=== PATIENT | female | born 1985 | race Caucasian/White ===

== ENCOUNTER → 2016-08-16 | Emergency (ER) | payer MEDICAID | END | disposition left against medical advice (07) | LOC: ER 00:10 | DX: F41.9 Anxiety disorder, unspecified (principal); Z53.21 Procedure and treatment not carried out due to patient leaving prior to being seen by health care provider ==

== ENCOUNTER 2017-12-19 16:34 | Emergency (ER) | payer MEDICAID ==
[~2017-12-19] VITALS: Ht 149.9 cm; Wt 81.6 kg
[2017-12-19 16:42] VITALS: BP 146/74
[2017-12-19] MEDS ORDERED: ALBUTEROL SULF 2.5 MG/0.5ML(0.5%) NEB SOLN NEB ONE (19:30)
[2017-12-19] MEDS ORDERED: IPRATROPIUM BROM 0.5 MG/2.5ML INH SOL NEB ONE (19:30)
== END 2017-12-19 20:55 | disposition home or self-care (01) ==
LOC: ER 16:44
DX: J40 Bronchitis, not specified as acute or chronic (principal)
CPT/HCPCS: 94640; 99283; J7611; J7644

== ENCOUNTER 2017-12-29 16:25 | Emergency (ER) | payer MEDICAID ==
[~2017-12-29] VITALS: Ht 149.9 cm; Wt 81.6 kg
[2017-12-29 17:29] LABS: Urine Bacteria FEW /hpf (None Seen); Urine Blood Negative /uL (Negative); Urine Specific Gravity 1.022 (1.001-1.035); Urine WBC 1 /hpf (0 - 5)
[2017-12-29 18:29] LABS: Albumin 4.1 g/dL (3.4-5.0); Calcium 9.2 mg/dL (8.5-10.1); Potassium 4.2 mmol/L (3.5-5.1)
[2017-12-29 18:34] LABS: BUN/Creatinine Ratio 14.1; Bilirubin, Total 0.5 mg/dL (0.2-1.0); Total Protein 8.5 g/dL (6.4-8.2)
[2017-12-29 18:35] LABS: Basophils # (auto) 0.1 uL; Basophils % (auto) 0.9 % (0.0-2.0); Eosinophils # (auto) 0.2 uL; Eosinophils % (auto) 1.7 % (0.0-7.0); Hematocrit 47.2 % (36.0-46.0); Hemoglobin 15.6 g/dL (12.2-16.2); Lymphocytes # (auto) 2.2 uL; Lymphocytes % (auto) 17.2 % (10.0-50.0); Mean Corpuscular Hemoglobin 30.3 pg (28.0-32.0); Mean Corpuscular Hgb Conc. 33.1 g/dL (32.0-36.0); Mean Corpuscular Volume 91.6 fL (80.0-100.0); Monocytes # (auto) 0.9 uL; Monocytes % (auto) 7.1 % (0.0-12.0); Neutrophils # (auto) 9.2 uL; Neutrophils % (auto) 73.1 % (37.0-80.0); Nucleated Red Blood Cells % 0.1 %; Platelet Count (auto) 418 10^3/uL (140-450); Red Blood Cells 5.15 10^6/uL (4.0-5.20); Red Cell Distribution Width 13.2 % (11.8-14.3); White Blood Cell 12.6 10^3/uL (4.4-10.8)
[2017-12-29] MEDS ORDERED: PANTOPRAZOLE 40 MG/10 ML VIAL IV STA (19:33)
[2017-12-29] MEDS ORDERED: SODIUM CHLORIDE 0.9% 500 ML IVB ONE (19:33)
[2017-12-29] MEDS ORDERED: ONDANSETRON HCL 4 MG/2 ML VIAL IV ONE (19:45)
[2017-12-29 22:26] VITALS: BP 155/98
== END 2017-12-29 23:08 | disposition home or self-care (01) ==
LOC: ER 16:41
DX: K29.00 Acute gastritis without bleeding (principal)
CPT/HCPCS: 36415; 76705; 80053; 81001; 81025; 85025; 96361; 96374; 96375; 99285; C9113; J2405

== ENCOUNTER 2018-01-01 09:39 | Emergency (ER) | payer MEDICAID ==
[~2018-01-01] VITALS: Ht 149.9 cm; Wt 72.6 kg
[2018-01-01 09:44] VITALS: BP 120/85
[2018-01-01] MEDS ORDERED: KETOROLAC TROMETH 60MG/2ML VIAL IM ONE (10:45)
== END 2018-01-01 12:10 | disposition home or self-care (01) ==
LOC: ER 09:39
DX: M54.5 Low back pain (principal)
CPT/HCPCS: 96372; 99283; J1885

== ENCOUNTER 2018-03-18 12:20 | Emergency (ER) | payer MEDICAID ==
[~2018-03-18] VITALS: Ht 149.9 cm; Wt 72.6 kg
[2018-03-18] MEDS ORDERED: SODIUM CHLORIDE 0.9% 1,000 ML IV ONE (13:36)
[2018-03-18 15:55] LABS: Urine Bacteria FEW /hpf (None Seen); Urine Blood 1+ /uL (Negative); Urine Hyaline Cast MOD /lpf (0 - 2); Urine Mucus MODERATE (None Seen); Urine Specific Gravity 1.027 (1.001-1.035); Urine WBC 48 /hpf (0 - 5)
[2018-03-18 15:59] LABS: Alanine Aminotransferase 36 U/L (13-56); Albumin 4.2 g/dL (3.4-5.0); Anion Gap 6 (5-15); Aspartate Aminotransferase 19 U/L (15-37); Blood Alcohol < 3.0 mg/dL (0-5); Blood Urea Nitrogen 8 mg/dL (7-18); Calcium 9.4 mg/dL (8.5-10.1); Carbon Dioxide 26 mmol/L (21-32); Chloride 105 mmol/L (98-107); Glucose 88 mg/dL (74-106); Potassium 3.3 mmol/L (3.5-5.1); Sodium 137 mmol/L (136-145)
[2018-03-18 16:02] LABS: Alkaline Phosphatase 85 U/L (45-117); Bilirubin, Total 1.1 mg/dL (0.2-1.0); GFR African American 106 mL/min; GFR Non-African American 87 mL/min; Total Protein 8.1 g/dL (6.4-8.2)
[2018-03-18 16:12] LABS: Alcohol, Urine < 3.0 mg/dL (0-5); Amphetamine Screen, Urine POSITIVE (NEGATIVE); Barbiturate Scree,Urine NEGATIVE (NEGATIVE); Benzodiazephine Screen, Urine NEGATIVE (NEGATIVE); Cannabinoid Screen, Urine POSITIVE (NEGATIVE); Cocaine Screen, Urine NEGATIVE (NEGATIVE); Opiate Scree,Urine NEGATIVE (NEGATIVE); Phencyclidine Screen, Urine NEGATIVE (NEGATIVE)
[2018-03-18 16:23] LABS: Basophils # (auto) 0 uL; Basophils % (auto) 0.4 % (0.0-2.0); Eosinophils # (auto) 0 uL; Hematocrit 43.8 % (36.0-46.0); Hemoglobin 15.2 g/dL (12.2-16.2); Lymphocytes # (auto) 1.6 uL; Lymphocytes % (auto) 25.1 % (10.0-50.0); Mean Corpuscular Hemoglobin 30.5 pg (28.0-32.0); Mean Corpuscular Hgb Conc. 34.7 g/dL (32.0-36.0); Mean Corpuscular Volume 87.9 fL (80.0-100.0); Monocytes # (auto) 0.5 uL; Monocytes % (auto) 8.2 % (0.0-12.0); Neutrophils # (auto) 4.3 uL; Neutrophils % (auto) 66.3 % (37.0-80.0); Nucleated Red Blood Cells % 0.5 %; Platelet Count (auto) 306 10^3/uL (140-450); Red Blood Cells 4.99 10^6/uL (4.0-5.20); White Blood Cell 6.5 10^3/uL (4.4-10.8)
[2018-03-19 15:23] VITALS: BP 105/60
== END 2018-03-19 13:04 | disposition short-term general hospital (02) ==
LOC: ER 12:20 → EDBD 12:20 → ER 03-19 13:04
DX: R41.82 Altered mental status, unspecified (principal); R44.1 Visual hallucinations; R45.851 Suicidal ideations; N39.0 Urinary tract infection, site not specified; F12.10 Cannabis abuse, uncomplicated; F15.10 Other stimulant abuse, uncomplicated
CPT/HCPCS: 36415; 70450; 80053; 80307; 80320; 81001; 85025; 94761

== ENCOUNTER 2018-05-06 03:23 | Emergency (ER) | payer MEDICAID ==
[~2018-05-06] VITALS: Ht 149.9 cm; Wt 74.8 kg
[2018-05-06 03:33] VITALS: BP 142/96
== END 2018-05-06 05:31 | disposition left against medical advice (07) ==
LOC: ER 03:23
DX: M25.531 Pain in right wrist (principal); Z53.21 Procedure and treatment not carried out due to patient leaving prior to being seen by health care provider
CPT/HCPCS: 73110; 73130

== ENCOUNTER 2018-08-04 16:44 | Emergency (ER) | payer MEDICAID ==
[~2018-08-04] VITALS: Ht 149.9 cm; Wt 77.1 kg
[2018-08-04 20:41] VITALS: BP 112/43
== END 2018-08-04 21:03 | disposition home or self-care (01) ==
LOC: ER 16:46
DX: G89.29 Other chronic pain (principal); M25.562 Pain in left knee
CPT/HCPCS: 73562

== ENCOUNTER 2019-01-03 10:57 | Emergency (ER) | payer MEDICAID ==
[2019-01-03 11:15] VITALS: BP 134/84
== END 2019-01-03 12:42 | disposition home or self-care (01) ==
LOC: ER 10:57
DX: S83.92XA Sprain of unspecified site of left knee, initial encounter (principal); W01.0XXA Fall on same level from slipping, tripping and stumbling without subsequent striking against object, initial encounter; Y93.01 Activity, walking, marching and hiking; Y92.89 Other specified places as the place of occurrence of the external cause; Y99.8 Other external cause status
CPT/HCPCS: 73562

== ENCOUNTER 2019-02-10 11:36 | Emergency (ER) | payer MEDICAID ==
[~2019-02-10] VITALS: Ht 149.9 cm; Wt 75.3 kg
[2019-02-10 11:53] VITALS: BP 122/80
== END 2019-02-10 16:27 | disposition home or self-care (01) ==
LOC: ER 11:36
DX: M54.5 Low back pain (principal); R35.0 Frequency of micturition; R51 Headache; M79.18 Myalgia, other site
CPT/HCPCS: 81002; 81025

== ENCOUNTER 2020-01-06 11:09 | Emergency (ER) | payer MEDICAID ==
[~2020-01-06] VITALS: Ht 149.9 cm; Wt 68.0 kg
[2020-01-06 11:58] LABS: Basophils # (auto) 0.1 10 ^3/uL (0-0.2); Basophils % (auto) 1.1 % (0.0-2.0); Eosinophils # (auto) 0.1 10 ^3/uL (0-0.8); Eosinophils % (auto) 1.7 % (0.0-7.0); Hematocrit 44.9 % (36.0-46.0); Hemoglobin 15.4 g/dL (12.2-16.2); Lymphocytes # (auto) 1.7 10 ^3/uL (0.4-5.4); Lymphocytes % (auto) 26.6 % (10.0-50.0); Mean Corpuscular Hemoglobin 30.6 pg (28.0-32.0); Mean Corpuscular Hgb Conc. 34.2 g/dL (32.0-36.0); Mean Corpuscular Volume 89.4 fL (80.0-100.0); Monocytes # (auto) 0.5 10 ^3/uL (0-1.3); Monocytes % (auto) 8.1 % (0.0-12.0); Neutrophils % (auto) 62.5 % (37.0-80.0); Nucleated Red Blood Cells % 0.1 %; Platelet Count (auto) 320 10^3/uL (140-450); Red Blood Cells 5.02 10^6/uL (4.0-5.20); Red Cell Distribution Width 12.2 % (11.8-14.3); White Blood Cell 6.4 10^3/uL (4.4-10.8)
[2020-01-06 12:09] LABS: Urine Bacteria MANY /hpf (None Seen); Urine Blood Negative /uL (Negative); Urine Specific Gravity 1.007 (1.001-1.035); Urine WBC 11 /hpf (0 - 5)
[2020-01-06 12:13] LABS: Alcohol, Urine < 3.0 mg/dL (0-10); Amphetamine Screen, Urine NEGATIVE (NEGATIVE); Barbiturate Scree,Urine NEGATIVE (NEGATIVE); Benzodiazephine Screen, Urine NEGATIVE (NEGATIVE); Cannabinoid Screen, Urine NEGATIVE (NEGATIVE); Cocaine Screen, Urine NEGATIVE (NEGATIVE); Opiate Scree,Urine NEGATIVE (NEGATIVE); Phencyclidine Screen, Urine NEGATIVE (NEGATIVE)
[2020-01-06 12:27] LABS: Potassium 3.4 mmol/L (3.5-5.1)
[2020-01-06 12:34] LABS: Albumin 3.8 g/dL (3.4-5.0); BUN/Creatinine Ratio 8.4; Bilirubin, Total 0.8 mg/dL (0.2-1.0); Calcium 8.7 mg/dL (8.5-10.1); Total Protein 7.7 g/dL (6.4-8.2)
[2020-01-06 17:25] LABS: Acetaminophen < 2.0 ug/mL (10-30)
[2020-01-06] MEDS ORDERED: cefTRIAXone W LIDOCAINE 1 GM IM IM ONE (17:30)
[2020-01-06 18:09] LABS: Salicylate < 1.7 mg/dL (2.8-20.0)
[2020-01-06] MEDS ORDERED: cefTRIAXone SOD 1,000 MG VL ONE (22:57)
[2020-01-07 08:11] VITALS: BP 101/72
--- NOTE | 2020-01-08 10:45 | NUR ---
Provided patient with info regarding [facility] - advised she must be willing to participate in chores, must not have any felonies or warrants for her. Also provided [facility] information, as well as [facility] contact information for possible programs to assist her. Patient would not speak with me, unable to assess her congnition or if there are any further needs. Inquired about social support or family assistance, she only said Tadeo's mom.. when I inquired who that was she would not answer.
== END 2020-01-06 17:23 | disposition home or self-care (01) ==
LOC: ER 11:09
DX: R45.851 Suicidal ideations (principal); N39.0 Urinary tract infection, site not specified; F32.9 Major depressive disorder, single episode, unspecified; F41.9 Anxiety disorder, unspecified; Z32.02 Encounter for pregnancy test, result negative
CPT/HCPCS: 36415; 80053; 80307; 80329; 81001; 81025; 85025; 96372; 99285; J0696

== ENCOUNTER 2020-05-14 17:09 | Emergency (ER) | payer MEDICAID ==
[~2020-05-14] VITALS: Ht 149.9 cm; Wt 49.9 kg
[2020-05-14 18:12] VITALS: BP 124/75
== END 2020-05-14 19:30 | disposition left against medical advice (07) ==
LOC: EDUNIT# 17:09 → EDBD 17:09 → ER 17:09
DX: M25.562 Pain in left knee (principal); Z53.21 Procedure and treatment not carried out due to patient leaving prior to being seen by health care provider

== ENCOUNTER 2020-06-11 13:41 | Emergency (ER) | payer MEDICAID ==
[~2020-06-11] VITALS: Ht 152.4 cm; Wt 74.8 kg
[2020-06-11 15:15] LABS: Basophils # (auto) 0 10 ^3/uL (0-0.2); Basophils % (auto) 0.4 % (0.0-2.0); Eosinophils # (auto) 0 10 ^3/uL (0-0.8); Eosinophils % (auto) 0.3 % (0.0-7.0); Hematocrit 42.5 % (36.0-46.0); Hemoglobin 14.8 g/dL (12.2-16.2); Lymphocytes # (auto) 0.6 10 ^3/uL (0.4-5.4); Mean Corpuscular Hemoglobin 31.6 pg (28.0-32.0); Mean Corpuscular Hgb Conc. 34.8 g/dL (32.0-36.0); Mean Corpuscular Volume 90.7 fL (80.0-100.0); Monocytes # (auto) 0.6 10 ^3/uL (0-1.3); Monocytes % (auto) 4.8 % (0.0-12.0); Neutrophils # (auto) 11.7 10 ^3/uL (1.6-8.6); Neutrophils % (auto) 89.5 % (37.0-80.0); Nucleated Red Blood Cells % 0.1 %; Platelet Count (auto) 356 10^3/uL (140-450); Red Blood Cells 4.69 10^6/uL (4.0-5.20); Red Cell Distribution Width 12.3 % (11.8-14.3); White Blood Cell 13.1 10^3/uL (4.4-10.8)
[2020-06-11 15:30] LABS: Salicylate < 1.7 mg/dL (2.8-20.0)
[2020-06-11 15:31] LABS: Albumin 4.2 g/dL (3.4-5.0); Anion Gap 10 (5-15); Blood Alcohol < 3.0 mg/dL (0-5); Blood Urea Nitrogen 8 mg/dL (7-18); Calcium 9.5 mg/dL (8.5-10.1); Carbon Dioxide 22 mmol/L (21-32); Chloride 108 mmol/L (98-107); Glucose 139 mg/dL (74-106); Magnesium 2.5 mg/dL (1.6-2.6); Potassium 3.4 mmol/L (3.5-5.1); Sodium 140 mmol/L (136-145)
[2020-06-11 15:35] LABS: Alanine Aminotransferase 26 U/L (13-56); Alkaline Phosphatase 87 U/L (45-117); Aspartate Aminotransferase 18 U/L (15-37); BUN/Creatinine Ratio 7.8; Bilirubin, Total 1.2 mg/dL (0.2-1.0); GFR African American 79 mL/min; GFR Non-African American 65 mL/min; Total Protein 8.1 g/dL (6.4-8.2)
[2020-06-11 15:37] LABS: Acetaminophen < 2.0 ug/mL (10-30)
[2020-06-11] MEDS ORDERED: LORazepam 0.5 MG TAB PO ONE (23:00)
[2020-06-11] MEDS ORDERED: risperiDONE 1 MG TAB PO ONE (23:00)
[2020-06-12 02:11] LABS: Urine Amorphous Crystal MOD /hpf (None Seen); Urine Bacteria FEW /hpf (None Seen); Urine Blood Negative /uL (Negative); Urine Hyaline Cast MOD /lpf (0 - 2); Urine Mucus MODERATE (None Seen); Urine Specific Gravity 1.031 (1.001-1.035); Urine WBC 3 /hpf (0 - 5)
[2020-06-12] MEDS ORDERED: LORazepam 0.5 MG TAB PO ONE (02:15)
[2020-06-12] MEDS ORDERED: risperiDONE 1 MG TAB PO ONE (02:15)
[2020-06-12 02:27] LABS: Amphetamine Screen, Urine POSITIVE (NEGATIVE); Barbiturate Scree,Urine NEGATIVE (NEGATIVE); Benzodiazephine Screen, Urine NEGATIVE (NEGATIVE); Cocaine Screen, Urine NEGATIVE (NEGATIVE); Opiate Scree,Urine NEGATIVE (NEGATIVE); Phencyclidine Screen, Urine NEGATIVE (NEGATIVE)
[2020-06-12 02:36] LABS: Cannabinoid Screen, Urine POSITIVE (NEGATIVE)
[2020-06-13 02:00] VITALS: BP 99/52
== END 2020-06-13 08:00 | disposition home or self-care (01) ==
LOC: ER 13:41 → EDBD 13:41 → ER 06-13 07:59
DX: R45.851 Suicidal ideations (principal); F41.9 Anxiety disorder, unspecified; F32.9 Major depressive disorder, single episode, unspecified; F20.9 Schizophrenia, unspecified; Z20.822 Contact with and (suspected) exposure to COVID-19
CPT/HCPCS: 36415; 80053; 80307; 80320; 80329; 81001; 81025; 83735; 85025; 87426

== ENCOUNTER 2020-08-29 21:03 | Emergency (ER) | payer MEDICAID ==
[~2020-08-29] VITALS: Ht 149.9 cm; Wt 72.6 kg
[2020-08-29] MEDS ORDERED: ONDANSETRON HCL 4 MG/2 ML VIAL IV ONE ×2 (21:30→22:15)
[2020-08-29] MEDS ORDERED: SODIUM CHLORIDE 0.9% 3,000 ML IV ONE (22:15)
[2020-08-29 22:52] LABS: Basophils # (auto) 0.1 10 ^3/uL (0-0.2); Eosinophils # (auto) 0.3 10 ^3/uL (0-0.8); Hematocrit 41.1 % (36.0-46.0); Hemoglobin 14.4 g/dL (12.2-16.2); Lymphocytes # (auto) 2.1 10 ^3/uL (0.4-5.4); Lymphocytes % (auto) 25.2 % (10.0-50.0); Mean Corpuscular Hemoglobin 31.5 pg (28.0-32.0); Mean Corpuscular Hgb Conc. 34.9 g/dL (32.0-36.0); Mean Corpuscular Volume 90.3 fL (80.0-100.0); Monocytes # (auto) 0.6 10 ^3/uL (0-1.3); Monocytes % (auto) 7.5 % (0.0-12.0); Neutrophils # (auto) 5.4 10 ^3/uL (1.6-8.6); Neutrophils % (auto) 63.3 % (37.0-80.0); Red Blood Cells 4.55 10^6/uL (4.0-5.20); Red Cell Distribution Width 12.6 % (11.8-14.3); White Blood Cell 8.5 10^3/uL (4.4-10.8)
[2020-08-29 23:11] LABS: Potassium 3.7 mmol/L (3.5-5.1)
[2020-08-29 23:16] LABS: Albumin 3.8 g/dL (3.4-5.0); BUN/Creatinine Ratio 21.7; Bilirubin, Total 0.2 mg/dL (0.2-1.0); Calcium 8.2 mg/dL (8.5-10.1); Total Protein 7.7 g/dL (6.4-8.2)
[2020-08-30 03:58] VITALS: BP 110/47
== END 2020-08-30 04:06 | disposition home or self-care (01) ==
LOC: EDUNIT# 21:03 → EDBD 21:03 → ER 21:06
DX: F10.129 Alcohol abuse with intoxication, unspecified (principal); Y90.7 Blood alcohol level of 200-239 mg/100 ml
CPT/HCPCS: 36415; 80053; 80320; 85025; 85049; 93005; 96374; 99285; J2405; J7030

== ENCOUNTER 2020-09-12 02:40 | Emergency (ER) | payer MEDICAID ==
[~2020-09-12] VITALS: Ht 149.9 cm; Wt 49.9 kg
[2020-09-12 08:07] VITALS: BP 113/65
== END 2020-09-12 08:26 | disposition home or self-care (01) ==
LOC: ER 02:40 → EDBD 02:40 → ER 08:26
DX: S86.912A Strain of unspecified muscle(s) and tendon(s) at lower leg level, left leg, initial encounter (principal); F41.9 Anxiety disorder, unspecified; Y04.8XXA Assault by other bodily force, initial encounter; Y93.89 Activity, other specified; Y92.89 Other specified places as the place of occurrence of the external cause; Y99.8 Other external cause status
CPT/HCPCS: 73562

== ENCOUNTER 2020-10-10 20:10 | Emergency (ER) | payer MEDICAID ==
[~2020-10-10] VITALS: Ht 149.9 cm; Wt 72.6 kg
[2020-10-10 21:27] LABS: Hemoglobin 13.7 g/dL (12.2-16.2)
[2020-10-10 21:30] LABS: Basophils # (auto) 0.1 10 ^3/uL (0-0.2); Basophils % (auto) 0.9 % (0.0-2.0); Eosinophils # (auto) 0.4 10 ^3/uL (0-0.8); Eosinophils % (auto) 4.9 % (0.0-7.0); Hematocrit 40.8 % (36.0-46.0); Lymphocytes # (auto) 2.3 10 ^3/uL (0.4-5.4); Lymphocytes % (auto) 32.2 % (10.0-50.0); Mean Corpuscular Hemoglobin 30.1 pg (28.0-32.0); Mean Corpuscular Hgb Conc. 33.5 g/dL (32.0-36.0); Monocytes # (auto) 0.6 10 ^3/uL (0-1.3); Monocytes % (auto) 7.7 % (0.0-12.0); Neutrophils # (auto) 3.9 10 ^3/uL (1.6-8.6); Neutrophils % (auto) 54.3 % (37.0-80.0); Nucleated Red Blood Cells % 0.1 %; Red Blood Cells 4.54 10^6/uL (4.0-5.20); Red Cell Distribution Width 12.6 % (11.8-14.3); White Blood Cell 7.3 10^3/uL (4.4-10.8)
[2020-10-10 21:46] LABS: Salicylate 2.1 mg/dL (2.8-20.0)
[2020-10-10 21:48] LABS: BUN/Creatinine Ratio 14.9; Calcium 8.7 mg/dL (8.5-10.1); Potassium 4.2 mmol/L (3.5-5.1)
[2020-10-10 21:55] LABS: Acetaminophen < 2.0 ug/mL (10-30)
[2020-10-11] MEDS ORDERED: SODIUM CHLORIDE 0.9% 3,000 ML IV ONE
[2020-10-11 12:04] LABS: Urine Amorphous Crystal MANY /hpf (None Seen); Urine Bacteria NONE SEEN /hpf (None Seen); Urine Blood Negative /uL (Negative); Urine Hyaline Cast MANY /lpf (0 - 2); Urine Mucus FEW (None Seen); Urine Specific Gravity 1.033 (1.001-1.035)
[2020-10-11 12:22] LABS: Amphetamine Screen, Urine NEGATIVE (NEGATIVE); Barbiturate Scree,Urine NEGATIVE (NEGATIVE); Benzodiazephine Screen, Urine NEGATIVE (NEGATIVE); Cocaine Screen, Urine NEGATIVE (NEGATIVE)
[2020-10-11 12:31] VITALS: BP 101/63
[2020-10-11 12:31] LABS: Cannabinoid Screen, Urine POSITIVE (NEGATIVE); Opiate Scree,Urine NEGATIVE (NEGATIVE); Phencyclidine Screen, Urine NEGATIVE (NEGATIVE)
== END 2020-10-11 18:15 | disposition home or self-care (01) ==
LOC: EDBD 20:10 → ER 20:12
DX: R45.851 Suicidal ideations (principal); F32.9 Major depressive disorder, single episode, unspecified; F10.129 Alcohol abuse with intoxication, unspecified; Y90.3 Blood alcohol level of 60-79 mg/100 ml
CPT/HCPCS: 36415; 80048; 80307; 80320; 80329; 81001; 84702; 85025

== ENCOUNTER 2020-11-24 16:46 | Emergency (ER) | payer MEDICAID ==
[~2020-11-24] VITALS: Ht 167.6 cm; Wt 81.6 kg
[2020-11-24 17:00] VITALS: BP 119/82
== END 2020-11-24 19:31 | disposition left against medical advice (07) ==
LOC: ER 16:46 → EDBD 16:46 → EDUNIT# 16:46 → ER 19:31
DX: F41.9 Anxiety disorder, unspecified (principal); R05.9 Cough, unspecified; R11.0 Nausea; F32.9 Major depressive disorder, single episode, unspecified; F20.9 Schizophrenia, unspecified; Z98.890 Other specified postprocedural states

== ENCOUNTER 2021-11-20 15:00 | Emergency (ER) | payer MEDICAID ==
[~2021-11-20] VITALS: Ht 149.9 cm; Wt 90.0 kg
[2021-11-20] MEDS ORDERED: HYDROcodone-ACET 5/325MG TAB PO ONE (16:00)
[2021-11-20 16:02] VITALS: BP 122/65
[2021-11-20] MEDS ORDERED: IBUP800T27 PO (16:05)
== END 2021-11-20 16:10 ==
LOC: ER 15:01
DX: S92.321A Displaced fracture of second metatarsal bone, right foot, initial encounter for closed fracture (principal); S92.331A Displaced fracture of third metatarsal bone, right foot, initial encounter for closed fracture; S92.341A Displaced fracture of fourth metatarsal bone, right foot, initial encounter for closed fracture; S92.401A Displaced unspecified fracture of right great toe, initial encounter for closed fracture; Z79.1 Long term (current) use of non-steroidal anti-inflammatories (NSAID); W01.0XXA Fall on same level from slipping, tripping and stumbling without subsequent striking against object, initial encounter; Y93.89 Activity, other specified; Y92.89 Other specified places as the place of occurrence of the external cause; Y99.8 Other external cause status
CPT/HCPCS: 29515; 73630

== ENCOUNTER 2022-07-14 16:22 | Emergency (ER) | payer MEDICAID ==
[~2022-07-14] VITALS: Ht 149.9 cm; Wt 90.9 kg
[~2022-07-14 16:22] MED LIST: IBUP-1456 PO
[2022-07-14 17:19] LABS: Basophils # (auto) 0.1 10 ^3/uL (0-0.2); Basophils % (auto) 1.3 % (0.0-2.0); Eosinophils # (auto) 0.4 10 ^3/uL (0-0.8); Hematocrit 41.9 % (36.0-46.0); Hemoglobin 14.1 g/dL (12.2-16.2); Lymphocytes # (auto) 2.4 10 ^3/uL (0.4-5.4); Lymphocytes % (auto) 29.9 % (10.0-50.0); Mean Corpuscular Hemoglobin 29.7 pg (28.0-32.0); Mean Corpuscular Hgb Conc. 33.6 g/dL (32.0-36.0); Mean Corpuscular Volume 88.2 fL (80.0-100.0); Monocytes # (auto) 0.6 10 ^3/uL (0-1.3); Neutrophils # (auto) 4.5 10 ^3/uL (1.6-8.6); Neutrophils % (auto) 55.8 % (37.0-80.0); Nucleated Red Blood Cells % 0.1 %; Red Blood Cells 4.75 10^6/uL (4.0-5.20); Red Cell Distribution Width 13.7 % (11.8-14.3)
[2022-07-14 17:37] LABS: Albumin 4.2 g/dL (3.4-5.0); Potassium 4.5 mmol/L (3.5-5.1); Salicylate < 1.7 mg/dL (2.8-20.0)
[2022-07-14 17:41] LABS: BUN/Creatinine Ratio 15.3 (10.0-20.0); Bilirubin, Total 0.5 mg/dL (0.2-1.0); Total Protein 7.9 g/dL (6.4-8.2)
[2022-07-14 18:34] LABS: Amphetamine Screen, Urine NEGATIVE (NEGATIVE); Barbiturate Scree,Urine NEGATIVE (NEGATIVE); Benzodiazephine Screen, Urine NEGATIVE (NEGATIVE); Cannabinoid Screen, Urine NEGATIVE (NEGATIVE); Cocaine Screen, Urine NEGATIVE (NEGATIVE); Opiate Scree,Urine NEGATIVE (NEGATIVE); Phencyclidine Screen, Urine NEGATIVE (NEGATIVE)
[2022-07-14 18:41] LABS: Urine Amorphous Crystal FEW /hpf (None Seen); Urine Bacteria MANY /hpf (None Seen); Urine Blood 2+ /uL (Negative); Urine Specific Gravity 1.004 (1.001-1.035); Urine WBC 5 /hpf (0 - 5)
[2022-07-14 18:42] LABS: Acetaminophen < 2.0 ug/mL (10-30)
[2022-07-15 16:57] VITALS: BP 124/45
== END 2022-07-15 17:41 ==
LOC: ER 16:22 → EDBD 16:22 → ER 07-15 17:41
DX: R45.851 Suicidal ideations (principal); M25.561 Pain in right knee; R44.0 Auditory hallucinations; F41.9 Anxiety disorder, unspecified; F32.9 Major depressive disorder, single episode, unspecified; F12.10 Cannabis abuse, uncomplicated; R10.2 Pelvic and perineal pain
CPT/HCPCS: 36415; 73560; 80053; 80307; 80320; 80329; 81001; 81025; 84702; 85025

== ENCOUNTER 2023-07-05 13:50 | Emergency (ER) | payer MEDICAID ==
[~2023-07-05] VITALS: Ht 149.9 cm; Wt 52.1 kg
[2023-07-05] MEDS ORDERED: AMOX500T3 PO (15:57)
[2023-07-05] MEDS ORDERED: NAPR-746 PO (15:57)
[2023-07-05] MEDS: DexAMETHasone SOD PHOS 10MG/1ML VIAL INJ IM ONE (15:58)
[2023-07-05] MEDS: cefTRIAXone SOD 500 MG VL IM ONE (15:59)
[2023-07-05 16:08] VITALS: BP 115/80; PULSE 98; RESP 16; TEMP 97.1; O2SAT 96
== END 2023-07-05 16:08 | disposition home or self-care (01) ==
LOC: ER 13:50
DX: K04.7 Periapical abscess without sinus (principal); F41.9 Anxiety disorder, unspecified; F32.9 Major depressive disorder, single episode, unspecified; F20.9 Schizophrenia, unspecified; F15.90 Other stimulant use, unspecified, uncomplicated; Z98.890 Other specified postprocedural states; Z79.899 Other long term (current) drug therapy
CPT/HCPCS: 96372; 99284; J0696; J1100